=== PATIENT | male | born 1990 | race Caucasian/White ===

== ENCOUNTER 2018-10-27 21:48 | Emergency (ER) | payer OTHER ==
[~2018-10-27] VITALS: Ht 182.9 cm; Wt 108.9 kg
[~2018-10-27 21:48] MED LIST: ACYC5TO15G; ASPI325 PO; Metoprolol Tart25 MG PO
[2018-10-27 23:05] LABS: BASOPHILS ABSOLUTE AUTO 0.06 K/mm3 (0.00-0.23); BASOPHILS PERCENT AUTO 1 % (0-2); EOSINOPHILS ABSOLUTE AUTO 0.19 K/mm3 (0.00-0.68); EOSINOPHILS PERCENT AUTO 2 % (0-6); Hematocrit 49.2 % (37.0-53.0); Hemoglobin 16.5 g/dL (13.5-17.5); IMMATURE GRAN ABSOLUTE AUTO 0.04 K/mm3 (0.00-0.10); IMMATURE GRAN PERCENT AUTO 1 % (0-1); LYMPHOCYTES ABSOLUTE AUTO 2.94 K/mm3 (0.84-5.20); LYMPHOCYTES PERCENT AUTO 35 % (21-46); MONOCYTES ABSOLUTE AUTO 0.73 K/mm3 (0.16-1.47); MONOCYTES PERCENT AUTO 9 % (4-13); Mean Corpuscular HGB 30.1 pg (26.0-34.0); Mean Corpuscular HGB Conc 33.5 g/dL (31.5-36.5); Mean Corpuscular Volume 90 fL (80-100); Mean Platelet Volume 12.2 fL (9.1-12.4); NEUTROPHILS ABSOLUTE AUTO 4.37 K/mm3 (1.96-9.15); NEUTROPHILS PERCENT AUTO 52 % (41-73); Platelet Count 225 K/mm3 (150-400); RDW Coefficient Variation 12.3 % (11.7-14.2); RDW Standard Deviation 40.5 fL (35.1-46.3); Red Blood Cell Count 5.49 M/mm3 (4.30-5.90); White Blood Cell Count 8.33 K/mm3 (4.00-11.30)
[2018-10-27 23:25] LABS: Alanine Aminotransfer (ALT/SGP 27 U/L (12-78); Albumin, Blood 4.3 g/dL (3.4-5.0); Albumin/Globulin Ratio 1.2 (0.8-1.8); Alk Phos 97 U/L (50-136); Anion Gap 7 mmol/L (6-16); Aspartate Aminotrans (AST/SGOT 11 U/L (12-37); Bilirubin, Total 0.7 mg/dL (0.1-1.0); Blood Urea Nitrogen 13 mg/dL (8-24); Bun/Creatinine Ratio 13.9 (12.0-20.0); CO2, Blood 26 mmol/L (21-32); Calcium, Blood 8.7 mg/dL (8.5-10.1); Chloride, Blood 110 mmol/L (98-108); Creatinine, Blood 0.93 mg/dL (0.60-1.20); Globulin, Blood 3.6 g/dL (2.2-4.0); Glomerular Filtration Rate >60 (60-); Glucose, Blood 129 mg/dL (70-99); Potassium, Blood 3.8 mmol/L (3.5-5.5); Sodium, Blood 143 mmol/L (136-145); Total Protein, Blood 7.9 g/dL (6.4-8.2); Troponin I <0.015 ng/mL (0.000-0.040)
[2018-10-27] MEDS ORDERED: DILT120 PO (23:30)
[2018-10-27] MEDS ORDERED: ELIQUIS5 MG PO (23:30)
== END 2018-10-28 02:55 | disposition home or self-care (01) ==
LOC: ER 21:48
PROVIDERS: Emergency Medicine
DX: I48.91 Unspecified atrial fibrillation (principal); Z79.899 Other long term (current) drug therapy
CPT/HCPCS: 36415; 80053; 83880; 84484; 85025; 92960; 93005; 93010; 96361-59; 96374-59; 96375-59; 99285-25; J2405; J7030

== ENCOUNTER → 2019-06-08 | Outpatient (CLI) | payer OTHER ==
[~2019-06-08] MED LIST changes: +DILT120 PO; +ELIQUIS5 MG PO
[2019-06-11 09:07] LABS: CHLAMYDIA BY NAA Negative (Negative); GONOCOCCUS BY NAA Negative (Negative); TRICH VAG BY NAA Negative (Negative)
== END ==
LOC: LAB 12:00 → LAB SHORT 12:00
PROVIDERS: Registered Nurse Community Health
DX: Z11.3 Encounter for screening for infections with a predominantly sexual mode of transmission (principal); Z72.51 High risk heterosexual behavior; Z20.2 Contact with and (suspected) exposure to infections with a predominantly sexual mode of transmission
CPT/HCPCS: 87070; 87077; 87147; 87186; 87205; 87529

== ENCOUNTER 2019-06-30 09:56 | Emergency (ER) | payer OTHER ==
[~2019-06-30] VITALS: Ht 182.9 cm; Wt 113.4 kg
[2019-06-30 10:30] LABS: Chloride (POC) 103 mmol/L (98-108); Glucose (ISTAT POC) 97 mg/dL (70-99); Hemoglobin (POC) 17.7 g/dL (13.5-17.5); Potassium (POC) 3.8 mmol/L (3.5-5.5); Sodium (POC) 142 mmol/L (135-148); Total CO2 (POC) 26 mmol/L (21-32)
[2019-06-30 10:36] LABS: BASOPHILS ABSOLUTE AUTO 0.07 K/mm3 (0.00-0.23); BASOPHILS PERCENT AUTO 1 % (0-2); EOSINOPHILS ABSOLUTE AUTO 0.07 K/mm3 (0.00-0.68); EOSINOPHILS PERCENT AUTO 1 % (0-6); Hematocrit 51.6 % (37.0-53.0); Hemoglobin 17.4 g/dL (13.5-17.5); IMMATURE GRAN ABSOLUTE AUTO 0.02 K/mm3 (0.00-0.10); IMMATURE GRAN PERCENT AUTO 0 % (0-1); LYMPHOCYTES ABSOLUTE AUTO 1.56 K/mm3 (0.84-5.20); LYMPHOCYTES PERCENT AUTO 25 % (21-46); MONOCYTES ABSOLUTE AUTO 0.53 K/mm3 (0.16-1.47); MONOCYTES PERCENT AUTO 8 % (4-13); Mean Corpuscular HGB 30.4 pg (26.0-34.0); Mean Corpuscular HGB Conc 33.7 g/dL (31.5-36.5); Mean Corpuscular Volume 90 fL (80-100); Mean Platelet Volume 12.2 fL (9.1-12.4); NEUTROPHILS ABSOLUTE AUTO 4.11 K/mm3 (1.96-9.15); NEUTROPHILS PERCENT AUTO 65 % (41-73); Platelet Count 209 K/mm3 (150-400); RDW Coefficient Variation 12.5 % (11.7-14.2); RDW Standard Deviation 40.9 fL (35.1-46.3); Red Blood Cell Count 5.73 M/mm3 (4.30-5.90); White Blood Cell Count 6.36 K/mm3 (4.00-11.30)
[2019-06-30 10:58] LABS: Alanine Aminotransfer (ALT/SGP 30 U/L (12-78); Albumin, Blood 4.3 g/dL (3.4-5.0); Albumin/Globulin Ratio 1.3 (0.8-1.8); Alk Phos 88 U/L (50-136); Anion Gap 4 mmol/L (6-16); Aspartate Aminotrans (AST/SGOT 17 U/L (12-37); Bilirubin, Total 0.9 mg/dL (0.1-1.0); Blood Urea Nitrogen 13 mg/dL (8-24); Bun/Creatinine Ratio 12.3 (12.0-20.0); CO2, Blood 29 mmol/L (21-32); Calcium, Blood 9.3 mg/dL (8.5-10.1); Chloride, Blood 108 mmol/L (98-108); Creatinine, Blood 1.06 mg/dL (0.60-1.20); Globulin, Blood 3.4 g/dL (2.2-4.0); Glomerular Filtration Rate >60 (60-); Glucose, Blood 96 mg/dL (70-99); Potassium, Blood 3.8 mmol/L (3.5-5.5); Sodium, Blood 141 mmol/L (136-145); Total Protein, Blood 7.7 g/dL (6.4-8.2); Troponin I <0.015 ng/mL (0.000-0.040)
== END 2019-06-30 12:47 | disposition home or self-care (01) ==
LOC: ER 09:56
PROVIDERS: Emergency Medicine
DX: I48.0 Paroxysmal atrial fibrillation (principal); Z79.899 Other long term (current) drug therapy; Z79.01 Long term (current) use of anticoagulants
CPT/HCPCS: 36415; 80047; 80053; 84484; 85014; 85025; 93005; 93010; 99284-25

== ENCOUNTER 2019-12-09 14:28 | Day surgery (SDC) | payer OTHER ==
[~2019-12-09] VITALS: Ht 182.9 cm; Wt 110.9 kg
[2019-12-09] MEDS ORDERED: AMOX875 PO (15:00)
[2019-12-09] MEDS ORDERED: IBUP600 PO (15:01)
--- NOTE | 2019-12-09 15:37 | NUR ---
Ambulatory in Day Surgery History, Chart, Medications and Allergies reviewed before start of procedure.Patient confirms NPO status and agrees with scheduled surgery. Lungs clear T/O to Auscultation. Patient States Post-Procedure ride home has been arranged WITH FATHER.
--- NOTE | 2019-12-09 18:28 | NUR ---
Patient up to Ambulate independently. Gait steady. Discharge instructions reviewed with patient. Patient verbalizes understanding. Copy given to patient to take home. Patient States Post-Procedure ride home has been arranged. Discharged via wheelchair to private car for ride home. DRSG WITH LIGHT PINK DRNG SMALL AMOUNT TOLERATED PO INYAKE MEDICATED REQUESTED WITH NORCO 5/325 MG PO
--- NOTE | 2019-12-09 18:56 | NUR ---
PERSONAL BELONGINGS WITH PT INCLUDING PHONE AND WALLET
== END 2019-12-09 23:09 | disposition home or self-care (01) ==
LOC: ORSCMMR 14:28 → ORD 21:15 → ORSCMMR 21:15
PROVIDERS: Surgery
PROC: 0D9Q3ZZ Drainage of Anus, Percutaneous Approach (ICD-10-PCS; principal; 2019-12-09 16:30)
DX: K61.1 Rectal abscess (principal)
CPT/HCPCS: 87070; 87075; 87077; 87186; 87205; 93005; 93010; A9270-GY; J0295; J1100; J1885; J2250; J2405; J2704; J3010; J7120

== ENCOUNTER 2020-11-25 11:29 | Observation (INO) | payer OTHER ==
[~2020-11-25] VITALS: Ht 182.9 cm; Wt 117.9 kg
[~2020-11-25 11:29] MED LIST changes: +AMOX875 PO; +IBUP600 PO
[2020-11-25 13:45] LABS: Influenza A, PCR NEGATIVE (NEGATIVE); Influenza B, PCR NEGATIVE (NEGATIVE); Resp Syncytial Virus, PCR NEGATIVE (NEGATIVE); SARS-Cov-2 (COVID-19) PCR, MMC NEGATIVE (NEGATIVE)
--- NOTE | 2020-11-25 17:19 | NUR ---
SHIFT SUMMARY PATIENT ADMITTED TO UNIT FROM ER ABOUT 1530. RIGHT BUTTOCK PAIN WITH DX OF PERIRECTAL ABCESS. PATIENT ALERT, ORIENTED, AND INDEPENDENT IN ROOM. NPO AT THIS TIME WITH IV FLUIDS RUNNING. MEDICATED FOR PAIN PER EMAR. PLAN FOR SURGERY AT 1800 TODAY 11/25/20.
--- NOTE | 2020-11-25 19:21 | NUR ---
RECEIVED REPORT FROM MICHAELA MARIANO. PT CURRENTLY IN OR.
[2020-11-25] MEDS ORDERED: SULTRIDS PO (21:18)
[2020-11-25] MEDS ORDERED: HYDR1TAB94 PO (21:19)
--- NOTE | 2020-11-25 21:58 | NUR ---
PT TOLERATING PO INTAKE WELL, REPORTS PAIN MANAGED. STATES THAT THE PAIN IS SIGNIFICANTLY IMPROVED AFTER SURGICAL INTERVENTION. HE ALSO STATES THAT HE DOES HAVE SOME PAIN MEDICATION AT HOME SINCE THE PHARMACY IS CLOSED AND HE WON'T BE ABLE TO FILL THE PRESCRIPTIONS UNTIL THE MORNING. PT REPORTS THAT HE FEELS HE WILL BE ABLE TO MANAGE HIS PAIN AT HOME. HE IS INDEPENDENT IN THE ROOM. VSS, NO ACUTE EVENTS. DRESSING C/D&I. IV REMOVED. Discharge instructions reviewed with patient. Patient verbalizes understanding. Copy given to patient to take home. Patient States Post-Procedure ride home has been arranged. RENEE'S FATHER IS AT BEDSIDE AND WILL TRANSPORT PT HOME. Discharged via wheelchair to private car for ride home.
== END 2020-11-25 22:15 | disposition home or self-care (01) ==
LOC: ER 11:29 → SURS 11:30
PROVIDERS: Emergency Medicine; ADMIT Surgery
PROC: 0D9P8ZZ Drainage of Rectum, Via Natural or Artificial Opening Endoscopic (ICD-10-PCS; principal; 2020-11-25 18:00)
DX: K61.1 Rectal abscess (principal); I48.91 Unspecified atrial fibrillation; Z20.822 Contact with and (suspected) exposure to COVID-19
CPT/HCPCS: 0241U; 72193; 87070; 87077; 87186; 87205; 93005; 93010; 96365-59; 96366; 96375-59; 96376; 99284-25; A9270; G0378; J0295; J0330; J1100; J1885; J2250; J2405; J2704; J2710; J3010; J7120; Q9967

== ENCOUNTER → 2021-12-07 | Outpatient (CLI) | payer OTHER ==
[~2021-12-07] MED LIST changes: +HYDR1TAB94 PO; +SULTRIDS PO
[2021-12-07 17:28] LABS: BASOPHILS ABSOLUTE AUTO 0.08 K/mm3 (0.00-0.23); BASOPHILS PERCENT AUTO 1 % (0-2); EOSINOPHILS PERCENT AUTO 4 % (0-6); Hematocrit 48.8 % (37.0-53.0); Hemoglobin 17.1 g/dL (13.5-17.5); IMMATURE GRAN ABSOLUTE AUTO 0.02 K/mm3 (0.00-0.10); IMMATURE GRAN PERCENT AUTO 0 % (0-1); LYMPHOCYTES ABSOLUTE AUTO 2.44 K/mm3 (0.84-5.20); LYMPHOCYTES PERCENT AUTO 32 % (21-46); MONOCYTES ABSOLUTE AUTO 0.52 K/mm3 (0.16-1.47); MONOCYTES PERCENT AUTO 7 % (4-13); Mean Corpuscular HGB 30.8 pg (26.0-34.0); Mean Corpuscular Volume 88 fL (80-100); Mean Platelet Volume 12.4 fL (9.1-12.4); NEUTROPHILS ABSOLUTE AUTO 4.26 K/mm3 (1.96-9.15); NEUTROPHILS PERCENT AUTO 56 % (41-73); Platelet Count 196 K/mm3 (150-400); RDW Coefficient Variation 12.7 % (11.7-14.2); RDW Standard Deviation 40.8 fL (35.1-46.3); Red Blood Cell Count 5.55 M/mm3 (4.30-5.90); White Blood Cell Count 7.62 K/mm3 (4.00-11.30)
[2021-12-07 17:52] LABS: Alanine Aminotransfer (ALT/SGP 32 U/L (12-78); Albumin, Blood 3.9 g/dL (3.4-5.0); Albumin/Globulin Ratio 1.2 (0.8-1.8); Alk Phos 98 U/L (40-126); Anion Gap 10 mmol/L (6-16); Aspartate Aminotrans (AST/SGOT 12 U/L (12-37); Bilirubin, Total 0.4 mg/dL (0.1-1.0); Blood Urea Nitrogen 16 mg/dL (8-24); Bun/Creatinine Ratio 16.5 (12.0-20.0); CO2, Blood 26 mmol/L (21-32); CPK Creatine Kinase 88 U/L (39-308); Calcium, Blood 8.4 mg/dL (8.5-10.1); Chloride, Blood 108 mmol/L (98-108); Creatinine, Blood 0.97 mg/dL (0.60-1.20); Free Thyroxine 0.85 ng/dL (0.70-1.60); Globulin, Blood 3.2 g/dL (2.2-4.0); Glomerular Filtration Rate >60 (60-); Glucose, Blood 113 mg/dL (70-99); Potassium, Blood 3.9 mmol/L (3.5-5.5); Sodium, Blood 144 mmol/L (136-145); Thyroid Stimulating Hormone 0.662 uIU/mL (0.360-4.800); Total Protein, Blood 7.1 g/dL (6.4-8.2)
== END ==
LOC: LAB SHORT 17:21
PROVIDERS: General Practice
DX: R07.9 Chest pain, unspecified (principal)
CPT/HCPCS: 80053; 82550; 84439; 84443; 84484; 85025

== ENCOUNTER 2023-12-07 22:06 | Observation (INO) | payer OTHER ==
[~2023-12-07] VITALS: Ht 182.9 cm; Wt 115.5 kg
[2023-12-07 23:28] LABS: BASOPHILS ABSOLUTE AUTO 0.05 K/mm3 (0.00-0.23); BASOPHILS PERCENT AUTO 1 % (0-2); EOSINOPHILS ABSOLUTE AUTO 0.16 K/mm3 (0.00-0.68); EOSINOPHILS PERCENT AUTO 2 % (0-6); Hematocrit 47.5 % (37.0-53.0); Hemoglobin 16.1 g/dL (13.5-17.5); IMMATURE GRAN ABSOLUTE AUTO 0.03 K/mm3 (0.00-0.10); IMMATURE GRAN PERCENT AUTO 0 % (0-1); LYMPHOCYTES PERCENT AUTO 14 % (21-46); MONOCYTES ABSOLUTE AUTO 0.81 K/mm3 (0.16-1.47); MONOCYTES PERCENT AUTO 8 % (4-13); Mean Corpuscular HGB 29.5 pg (26.0-34.0); Mean Corpuscular HGB Conc 33.9 g/dL (31.5-36.5); Mean Corpuscular Volume 87 fL (80-100); Mean Platelet Volume 11.8 fL (9.1-12.4); NEUTROPHILS ABSOLUTE AUTO 7.85 K/mm3 (1.96-9.15); NEUTROPHILS PERCENT AUTO 76 % (41-73); Platelet Count 177 K/mm3 (150-400); RDW Coefficient Variation 12.7 % (11.7-14.2); RDW Standard Deviation 40.2 fL (35.1-46.3); Red Blood Cell Count 5.45 M/mm3 (4.30-5.90)
[2023-12-08] VITALS (12 sets, daily range): BP systolic 110–139; BP diastolic 58–79
[2023-12-08] MEDS ORDERED: Ketorolac Tromethamine 15mg Vial IV ONE (00:05)
[2023-12-08] MEDS ORDERED: CeFAZolin 1000MG in D5W 50 ML IV ONE (00:05)
[2023-12-08 00:10] LABS: Albumin, Blood 4.1 g/dL (3.4-5.0); Albumin/Globulin Ratio 1.2 (0.8-1.8); Bilirubin, Total 1.3 mg/dL (0.1-1.0); Bun/Creatinine Ratio 14.7 (12.0-20.0); Calcium, Blood 8.9 mg/dL (8.5-10.1); Creatinine, Blood 0.82 mg/dL (0.60-1.20); Globulin, Blood 3.4 g/dL (2.2-4.0); Potassium, Blood 3.7 mmol/L (3.5-5.5); Total Protein, Blood 7.5 g/dL (6.4-8.2)
[2023-12-08] MEDS ORDERED: CeFAZolin Sodium 1,000 MG in NS 50 ML IV ONE (00:10)
[2023-12-08] MEDS ORDERED: Piperacillin/Tazobactam Sod 3.375 GM in NS 100 ML IV ONE (00:45)
[2023-12-08] MEDS ORDERED: Acetaminophen 325 MG TABLET PO PRN (01:40)
[2023-12-08] MEDS ORDERED: FentaNYL Citrate 50 MCG/ML 2 ML Injection IV PRN (01:40)
[2023-12-08] MEDS ORDERED: Ondansetron HCl 2 MG / ML 2ML Vial IV PRN (01:45)
[2023-12-08] MEDS ORDERED: NS 1,000 ML IV SCH (01:45)
[2023-12-08] MEDS ORDERED: FLECAINIDE ACE150 MG PO (02:29)
[2023-12-08] MEDS ORDERED: Ketorolac Tromethamine 15mg Vial IV PRN (02:55)
--- NOTE | 2023-12-08 04:05 | NUR ---
0230 ARRIVAL NOTE PT INTO ROOM FROM ER, AMBULATED INDEPENDENTLY TO BED. PAIN IS TOLERABLE, MANAGED WITH PAIN MEDS PER EMAR. VSS. TELE MONITOR IN PLACE. CLOSED PERIANAL ABSCESS NOTED, SOME SWELLING PRESENT. 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
--- NOTE | 2023-12-08 04:53 | NUR ---
SHIFT SUMMARY PT ADMITTED FROM ER FOR PERIANAL ABSCESS DURING SHIFT. PT MEDICATED PER EMAR FOR PAIN W/ TOLERABLE RESULTS. ABSCESS IS CLOSED, NO DRAINAGE NOTED, SOME SWELLING TO R GLUTEAL FOLD. VSS. SKIN WIPES, NASAL SWAB, MOUTH RINSE DONE. PT RESTING IN ROOM W/ ANTIBIOTICS AND FLUIDS RUNNING PER EMAR, NPO SINCE 0000 FOR SURGERY TOMORROW.
[2023-12-08 05:31] LABS: BASOPHILS ABSOLUTE AUTO 0.04 K/mm3 (0.00-0.23); BASOPHILS PERCENT AUTO 0 % (0-2); EOSINOPHILS ABSOLUTE AUTO 0.11 K/mm3 (0.00-0.68); EOSINOPHILS PERCENT AUTO 1 % (0-6); Hematocrit 43.7 % (37.0-53.0); Hemoglobin 14.9 g/dL (13.5-17.5); IMMATURE GRAN ABSOLUTE AUTO 0.03 K/mm3 (0.00-0.10); IMMATURE GRAN PERCENT AUTO 0 % (0-1); LYMPHOCYTES ABSOLUTE AUTO 1.03 K/mm3 (0.84-5.20); LYMPHOCYTES PERCENT AUTO 11 % (21-46); MONOCYTES ABSOLUTE AUTO 0.82 K/mm3 (0.16-1.47); MONOCYTES PERCENT AUTO 9 % (4-13); Mean Corpuscular HGB 30.1 pg (26.0-34.0); Mean Corpuscular HGB Conc 34.1 g/dL (31.5-36.5); Mean Corpuscular Volume 88 fL (80-100); NEUTROPHILS PERCENT AUTO 78 % (41-73); Platelet Count 140 K/mm3 (150-400); RDW Coefficient Variation 12.8 % (11.7-14.2); RDW Standard Deviation 41.4 fL (35.1-46.3); Red Blood Cell Count 4.95 M/mm3 (4.30-5.90); White Blood Cell Count 9.23 K/mm3 (4.00-11.30)
[2023-12-08 05:37] LABS: International Normalized Ratio 1.01; Prothrombin Time Results 10.8 Sec (9.7-11.5)
[2023-12-08] MEDS ORDERED: Piperacillin/Tazobactam Sod 4.5 GM in NS 100 ML IV SCH (06:00)
[2023-12-08 06:08] LABS: Albumin, Blood 3.6 g/dL (3.4-5.0); Albumin/Globulin Ratio 1.2 (0.8-1.8); Bilirubin, Total 1.6 mg/dL (0.1-1.0); Bun/Creatinine Ratio 13.4 (12.0-20.0); Calcium, Blood 8.9 mg/dL (8.5-10.1); Creatinine, Blood 0.97 mg/dL (0.60-1.20); Globulin, Blood 3.1 g/dL (2.2-4.0); Total Protein, Blood 6.7 g/dL (6.4-8.2)
--- NOTE | 2023-12-08 12:55 | NUR ---
History, Chart, Medications and Allergies reviewed before start of procedure. Patient up to Ambulate independently. Gait steady. Pre-Op teaching done. Pt verbalizes understanding. Patient confirms NPO status and agrees with scheduled surgery. Lungs clear T/O to Auscultation.
[2023-12-08] MEDS ORDERED: Hair, Skin & N1 EACH PO (12:58)
[2023-12-08] MEDS ORDERED: PSYLLIUM FIBER0.4 GM PO (13:00)
[2023-12-08] MEDS ORDERED: Lactated Ringer's 1,000 ML IV SCH (13:05)
[2023-12-08] MEDS ORDERED: Bupivacaine 0.5% HCl 5 MG/ML 30MLVIAL ONE (13:09)
[2023-12-08] MEDS ORDERED: FentaNYL Citrate 50 MCG/ML 2 ML Injection ONE (13:29)
[2023-12-08] MEDS ORDERED: propofoL 20 ML IV ONE (13:29)
[2023-12-08] MEDS ORDERED: Dexamethasone Sod Phos 10 MG/ML 1ML VIAL ONE (13:39)
[2023-12-08] MEDS ORDERED: HYDROmorphone HCl/Pf 1MG SYR ONE (13:48)
--- NOTE | 2023-12-08 14:09 | NUR ---
12/08/23 1409 Jackie Mckeon NO PREOP ANTIBIOTICS ORDERED PER PATIENT IS ON SCHEDULED ANTIBIOTICS.
[2023-12-08] MEDS ORDERED: Ondansetron HCl 2 MG / ML 2ML Vial ONE (14:13)
[2023-12-08] MEDS ORDERED: HYDROcodone 5-APAP 325 TAB PO PRN (14:40)
[2023-12-08] MEDS ORDERED: AMOCLA875 PO (15:39)
[2023-12-08] MEDS ORDERED: HYDR1TAB94 PO (15:41)
[2023-12-08] MEDS ORDERED: Amoxicillin/Clavulanate K 875 MG Tab PO SCH ×2 (16:25→18:00)
--- NOTE | 2023-12-08 17:00 | NUR ---
DISCHARGE PT A&OX4, VSS/RA, LUIS ENRIQUE PO, VOIDING, AMB INDEPENDENTLY/DRESSED SELF, PAIN MANAGED, IV DC'D. DC INS PROVIDED TO PT AND BROTHER CORRIE; REP UNDERSTANDING THOSE INSTRUCTIONS. LEFT FLOOR VIA WC WITH CLOTH MERCERIZER OPERATOR TO GO HOME WITH CORRIE, WITH ALL PERSONAL POSSESSIONS INCLUDING DRESSING CHANGES/GAUZE; ON WAY TO INTELLIGENCE ENGINEER NORCO & AUGMENTIN FROM PHARMACY.
== END 2023-12-08 16:56 | disposition home or self-care (01) ==
LOC: ER 22:06 → SURS 22:07 → ER 12-08 01:29 → SURS 12-08 02:12
PROVIDERS: Physician Assistant; Student in an Organized Health Care Education/Training Program; Surgery; ADMIT Internal Medicine
PROC: 0D9P70Z Drainage of Rectum with Drainage Device, Via Natural or Artificial Opening (ICD-10-PCS; principal; 2023-12-08 11:30)
DX: K61.1 Rectal abscess (principal); Z79.899 Other long term (current) drug therapy
CPT/HCPCS: 36415; 72192; 80053; 83605; 83880; 85025; 85610; 87070; 87075; 87077; 87185; 87186; 87205; 93005; 93010; 96365-59; 96367-59; 96375-59; 99284-25; A9270; J0690; J1100; J1170; J1885; J2405; J2543; J2704; J3010; J3370; J7030; J7050; J7120

== ENCOUNTER 2024-03-02 07:39 | Observation (INO) | payer OTHER ==
[2024-03-02] VITALS (11 sets, daily range): BP systolic 113–139; BP diastolic 55–77
[~2024-03-02] VITALS: Ht 182.9 cm; Wt 113.4 kg
[~2024-03-02 07:39] MED LIST changes: +AMOCLA875 PO; +FLECAINIDE ACE150 MG PO; +Hair, Skin & N1 EACH PO; +PSYLLIUM FIBER0.4 GM PO
[2024-03-02] MEDS ORDERED: CEPH500 PO (08:03)
[2024-03-02] MEDS ORDERED: Ketorolac Tromethamine 15mg Vial IV ONE (08:25)
[2024-03-02 08:49] LABS: BASOPHILS ABSOLUTE AUTO 0.07 K/mm3 (0.00-0.23); BASOPHILS PERCENT AUTO 1 % (0-2); EOSINOPHILS PERCENT AUTO 1 % (0-6); Hemoglobin 15.5 g/dL (13.5-17.5); IMMATURE GRAN ABSOLUTE AUTO 0.03 K/mm3 (0.00-0.10); IMMATURE GRAN PERCENT AUTO 0 % (0-1); LYMPHOCYTES ABSOLUTE AUTO 1.38 K/mm3 (0.84-5.20); LYMPHOCYTES PERCENT AUTO 13 % (21-46); MONOCYTES ABSOLUTE AUTO 0.76 K/mm3 (0.16-1.47); MONOCYTES PERCENT AUTO 7 % (4-13); Mean Corpuscular HGB Conc 34.4 g/dL (31.5-36.5); Mean Corpuscular Volume 87 fL (80-100); Mean Platelet Volume 11.8 fL (9.1-12.4); NEUTROPHILS ABSOLUTE AUTO 8.28 K/mm3 (1.96-9.15); NEUTROPHILS PERCENT AUTO 78 % (41-73); Platelet Count 177 K/mm3 (150-400); RDW Coefficient Variation 12.5 % (11.7-14.2); RDW Standard Deviation 39.8 fL (35.1-46.3); Red Blood Cell Count 5.16 M/mm3 (4.30-5.90); White Blood Cell Count 10.62 K/mm3 (4.00-11.30)
[2024-03-02 09:19] LABS: Albumin/Globulin Ratio 1.1 (0.8-1.8); Bilirubin, Total 1.3 mg/dL (0.1-1.0); Bun/Creatinine Ratio 13.1 (12.0-20.0); C-REACTIVE PROTEIN, EXT RANGE 2.52 mg/dL (0.000-0.300); Calcium, Blood 8.6 mg/dL (8.5-10.1); Creatinine, Blood 0.92 mg/dL (0.60-1.20); Globulin, Blood 3.6 g/dL (2.2-4.0); Total Protein, Blood 7.6 g/dL (6.4-8.2)
[2024-03-02] MEDS ORDERED: HYDROcodone 5-APAP 325 TAB PO PRN (12:45)
[2024-03-02] MEDS ORDERED: Lactated Ringer's 1,000 ML IV SCH ×2 (12:45→13:35)
[2024-03-02] MEDS ORDERED: Ondansetron HCl 2 MG / ML 2ML Vial IV PRN ×2 (12:50→14:25)
[2024-03-02] MEDS ORDERED: FentaNYL Citrate 50 MCG/ML 2 ML Injection IV PRN ×3 (12:50→14:30)
[2024-03-02] MEDS ORDERED: Piperacillin/Tazobactam Sod 4.5 GM in NS 100 ML IV SCH (13:00)
[2024-03-02] MEDS ORDERED: FentaNYL Citrate 50 MCG/ML 2 ML Injection ONE ×2 (13:06→14:24)
[2024-03-02] MEDS ORDERED: propofoL 20 ML IV ONE (13:06)
[2024-03-02] MEDS ORDERED: Labetalol HCL 5 MG/ML 4ML Injection (Single Dose) ONE (13:13)
[2024-03-02] MEDS ORDERED: Bupivacaine 0.5% Inj 10 ML Vial ONE (14:02)
[2024-03-02] MEDS ORDERED: Midazolam HCl 1MG / ML 2ML Vial IV ONE ×2 (14:20→14:25)
[2024-03-02] MEDS ORDERED: Lidocaine HCl 1% 5 ML SYR INJ ONE (14:25)
[2024-03-02] MEDS ORDERED: Midazolam HCl 1MG / ML 2ML Vial ONE (14:27)
[2024-03-02] MEDS ORDERED: HYDROmorphone HCl/Pf 1MG SYR IV PRN (14:30)
[2024-03-02] MEDS ORDERED: Ondansetron HCl 2 MG / ML 2ML Vial ONE (14:43)
[2024-03-02] MEDS ORDERED: Dexamethasone Sod Phos 10 MG/ML 1ML VIAL ONE (14:43)
[2024-03-02] MEDS ORDERED: Ketorolac Tromethamine 30mg Vial ONE (14:44)
--- NOTE | 2024-03-02 14:52 | NUR ---
ADMISSION: REPORT RECEIVED FROM ED RN. PT TO UNIT AT 1217. PT IS A/O, VSS. PT REPORTED RECTAL PAIN 5/10, MEDICATED PER EMAR. ANTIBIOTIC STARTED AND PT MADE READY FOR OR. ORIENTED TO ROOM AND CALL LIGHT.
[2024-03-02] MEDS ORDERED: Lidocaine HCl 2% Jelly 120MG/6ML SYR (20MG PER ML) ONE (15:06)
[2024-03-02] MEDS ORDERED: Flecainide Acetate 100 MG Tab PO PRN (15:20)
--- NOTE | 2024-03-02 16:51 | NUR ---
POST OP: REPORT RECEIVED FROM LINER INSERTER. PT TO UNIT AT 1550. A/O, VSS. SURGICAL SITE WNL, DRESSING REINFORCED WITH GAUZE , SMALL AMT SS DRAINAGE. PT REPORTS PAIN 5/10, MEDICATED PER EMAR. PT INSTRUCTED TO USE CALL LIGHT FOR NEEDS.
--- NOTE | 2024-03-02 19:00 | NUR ---
DISCHARGE: PACKET PRINTED AND PT EDUCATED. IV DC'D WNL. PT GIVEN DRESSING SUPPLIES FOR HOME AND SCRIPTS FOR PAIN AND ABX. PT VERBALIZED UNDERSTANDING OF EDUCATION. LEFT UNIT AT ABOUT 1840 WITH ON FOOT. DENIED NEED FOR WHEELCHAIR.
[2024-03-02] MEDS ORDERED: Docusate Sodium 100 MG Cap PO SCH (21:00)
[2024-03-02] MEDS ORDERED: Amoxicillin/Clavulanate K 875 MG Tab PO SCH (21:00)
== END 2024-03-02 18:40 | disposition home or self-care (01) ==
LOC: ER 07:39 → SURS 07:40
PROVIDERS: Physician Assistant; ADMIT Surgery
PROC: 0D9P0ZZ Drainage of Rectum, Open Approach (ICD-10-PCS; principal; 2024-03-02 13:00)
DX: K61.1 Rectal abscess (principal); F17.200 Nicotine dependence, unspecified, uncomplicated
CPT/HCPCS: 72193; 80053; 85025; 86140; 96365; 96374-59; 96375; 96375-59; 99284-25; A9270; G0378; J1100; J1885; J2250; J2405; J2543; J2704; J3010; J7120; Q9967